=== PATIENT | male | born 1990 | race Caucasian/White ===

== ENCOUNTER 2017-05-04 13:12 | Emergency (ER) | payer SELFPAY ==
[~2017-05-04] VITALS: Ht 182.9 cm; Wt 63.6 kg
[~2017-05-04 13:12] MED LIST: PREDNISONE20 M1 PO; ZITHROMAX 250M250 MG PO
[2017-05-04 14:21] VITALS: BP 130/70
== END 2017-05-04 14:18 | disposition home or self-care (01) ==
LOC: ED 13:12
DX: S60.221A Contusion of right hand, initial encounter (principal); X58.XXXA Exposure to other specified factors, initial encounter

== ENCOUNTER 2017-05-18 16:25 | Emergency (ER) | payer SELFPAY ==
[~2017-05-18] VITALS: Ht 182.9 cm; Wt 63.6 kg
[2017-05-18 18:20] VITALS: BP 130/70
== END 2017-05-18 18:00 | disposition home or self-care (01) ==
LOC: ED 16:25
DX: M79.641 Pain in right hand (principal); S60.511A Abrasion of right hand, initial encounter; X50.3XXA Overexertion from repetitive movements, initial encounter

== ENCOUNTER 2017-09-16 13:25 | Emergency (ER) | payer SELFPAY ==
[~2017-09-16] VITALS: Ht 182.9 cm; Wt 65.9 kg
[2017-09-16 13:31] VITALS: BP 125/83
== END 2017-09-16 14:20 | disposition home or self-care (01) ==
LOC: ED 13:25
DX: J06.9 Acute upper respiratory infection, unspecified (principal)

== ENCOUNTER 2017-11-13 15:42 | Emergency (ER) | payer SELFPAY ==
[~2017-11-13] VITALS: Ht 182.9 cm; Wt 63.6 kg
[2017-11-13 16:16] VITALS: BP 135/78
== END 2017-11-13 16:16 | disposition home or self-care (01) ==
LOC: ED 15:42
DX: M79.641 Pain in right hand (principal); Z88.5 Allergy status to narcotic agent; F17.200 Nicotine dependence, unspecified, uncomplicated